=== PATIENT | female | born 1970 | race Two or more races ===

== ENCOUNTER 2024-10-18 22:59 | Emergency (ER) | payer MEDICAID, SELFPAY ==
[2024-10-18 23:17] VITALS: BP 207/98; PULSE 89; RESP 18; TEMP 37.1; O2SAT 99; BMI 28.3
--- NOTE | 2024-10-18 23:50 | XR_ITS ---
Examination: Abdomen AP single view Technique: AP portable supine abdomen, single view Exam date and time: October 19, 2024 0027 hrs. Indications: Abdominal pain constipation beginning 2 weeks ago Findings: Large amount of stool throughout the colon No obstruction No free air Impression: Large amounts of stool throughout the colon
--- NOTE | 2024-10-18 23:50 | PD.EDRME ---
Rapid Medical Screening Exam [facility] Arrival date/time: 10/18/24 22:59 54F with history CVA, HTN, and drug use presents to ED with L-sided ab/flank pain and constipation. Chief Complaint: General Adult/Misc Complain Vital signs: Vital Signs Temperature 98.8 F 10/18/24 23:17 Pulse Rate 89 10/18/24 23:17 Respiratory Rate 18 10/18/24 23:17 Blood Pressure 207/98 H 10/18/24 23:17 Pulse Oximetry (%) 99 10/18/24 23:17 Oxygen Delivery Method Room Air 10/18/24 23:17
[2024-10-19 00:31] LABS: Basophils # (Auto) 0.1 Thou/mm3 (0.0-0.2); Basophils % (Auto) 1 % (0-2.5); Eosinophils # (Auto) 0.5 Thou/mm3 (0.0-0.5); Eosinophils % (Auto) 7 % (0-10); Hematocrit 32.5 % (36.0-46.0); Hemoglobin 10.6 g/dL (12.0-16.0); Immature Granulocytes % (Auto) 0 % (0-0); Immature Granulocytes Auto 0.01 Thou/mm3 (0.00-0.00); Lymphocytes # (Auto) 1.6 Thou/mm3 (1.0-4.8); Lymphocytes % (Auto) 22 % (10-50); Mean Corpuscular HGB Conc 32.6 g/dl (31.0-37.0); Mean Corpuscular Hemoglobin 27.6 pg (25.0-35.0); Mean Corpuscular Volume 85 fL (80-100); Monocytes # (Auto) 0.6 Thou/mm3 (0.0-0.8); Monocytes % (Auto) 8 % (0-12); Neutrophils # (Auto) 4.5 Thou/mm3 (1.8-7.7); Neutrophils % (Auto) 63 % (37-80); Nucleated Red Blood Cell % 0 /100 WBC (0); Platelet Count 193 Thou/mm3 (140-440); Red Blood Count 3.84 Miln/mm3 (4.00-5.20); White Blood Count 7.2 Thou/mm3 (3.6-11.0)
[2024-10-19 01:00] LABS: Alanine Aminotransferase 22 U/L (10-49); Albumin/Globulin Ratio 1.4 (1.2-2.2); Alkaline Phosphatase 78 U/L (46-116); Anion Gap 8 (7-16); Aspartate Amino Transferase 17 U/L (0-34); BUN/Creatinine Ratio 24 Ratio (12-20); Bilirubin,Total 0.5 mg/dL (0.3-1.2); Blood Urea Nitrogen 29 mg/dL (9-23); Carbon Dioxide 27.6 mMol/L (20.0-31.0); Chloride 103 mMol/L (98-107); Creatinine (Component) 1.2 mg/dL (0.6-1.3); Estimated Creatinine Clearance 50.6 mL/min (>60); Globulin 2.9 gm/dL (2.3-3.5); Glucose 89 mg/dL (74-106); Lipase 39 U/L (12-53); Osmolality,Calculated 282 (275-295); Potassium 3.6 mMol/L (3.4-5.1); Sodium 139 mMol/L (136-145); Total Protein 6.9 gm/dL (5.7-8.2); eGFR 53 See Note
[2024-10-19 01:35] LABS: Collection Type, Urine Clean Catch
[2024-10-19 02:02] LABS: Bacteria,Urine 4+; Bilirubin,Urine Negative (Negative); Blood,Urine Negative (Negative); Clarity,Urine Turbid (Clear/Hazy); Color,Urine Lt-Yellow (Lt Yel-Yel); Glucose, Urine Negative (Negative); Hyaline Casts,Urine < 1 /hpf (0-1); Ketones,Urine Negative (Negative); Leukocyte Esterase,Urine Positive (Negative); Nitrite,Urine Positive (Negative); Protein,Urine 1+ (Neg - Trace); RBC,Urine 8 /hpf (0-3); Specific Gravity,Urine 1.024 (1.001-1.035); Squamous Epithelial Cell,Urine 2 /hpf (0-5); Urobilinogen,Urine Negative mg/dL (0.0-1.0); WBC,Urine 24 /hpf (0-5)
[2024-10-19 02:31] VITALS: BP 194/96; PULSE 75; RESP 17; O2SAT 97
[2024-10-19 03:00] VITALS: BP 181/89; PULSE 75; RESP 14; TEMP 36.7; O2SAT 97
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
[2024-10-19] MEDS: DOXYCYCLINE 100 MG TABLET PO (03:26)
== END 2024-10-19 03:36 | disposition home or self-care (01) ==
PROVIDERS: Physician Assistant; Emergency Provider Emergency Medicine
DX: N39.0 Urinary tract infection, site not specified (principal); I10 Essential (primary) hypertension; I69.320 Aphasia following cerebral infarction
CPT/HCPCS: 36415; 74018; 80053; 81001; 83690; 85025; 99283; A9270